=== PATIENT | female | born 1930 | race Asian ===

== ENCOUNTER → 2017-03-03 | Outpatient (CLI) | payer OTHER ==
[~2017-03-03] MED LIST: ATOR40TA28 PO; BRIN10DR OP; GLIP5 PO; LEVO500 PO; METF500T4 PO; VALS160T2 PO
== END | disposition home or self-care (01) ==
LOC: RADPV 10:01
PROVIDERS: ATTEND Internal Medicine
DX: J44.9 Chronic obstructive pulmonary disease, unspecified (principal); I51.7 Cardiomegaly; I70.0 Atherosclerosis of aorta; J98.11 Atelectasis; M41.84 Other forms of scoliosis, thoracic region
CPT/HCPCS: 71020

== ENCOUNTER 2017-05-05 19:05 | Emergency (ER) | payer OTHER ==
[~2017-05-05] VITALS: Ht 144.8 cm; Wt 59.1 kg
[~2017-05-05 19:05] MED LIST changes: +ALEN10TA PO; +AMLO-511 PO; +BIMA5DRO OP; +CALC500T62 PO; +FENO135C PO; +LORA10CA; +PIOG15TA13 PO; +SITA25 PO; +TRAM-459 PO
[2017-05-05 19:27] LABS: GLUCOSE,POINT OF CARE 145 MG/DL (70-110)
[2017-05-05 20:28] LABS: BASOPHILS % (AUTO) 0.3 % (0.0-2.0); EOSINOPHILS % (AUTO) 6.9 % (1.0-6.0); HEMOGLOBIN 12.1 g/dL (12.0-16.0); LYMPHOCYTES # (AUTO) 2.9 K/uL (1.0-4.8); LYMPHOCYTES % (AUTO) 35.7 % (22.0-44.0); MEAN CORPUSCULAR HEMOGLOBIN 30.8 pg (26.0-34.0); MEAN CORPUSCULAR HGB CONC 34.5 G/dL (31.0-37.0); MEAN CORPUSCULAR VOLUME 89 fL (80-100); MONOCYTES # (AUTO) 0.5 K/uL (0.1-1.0); MONOCYTES % (AUTO) 5.8 % (2.0-9.0); NEUTROPHILS # (AUTO) 4.1 K/uL (1.8-7.7); NEUTROPHILS % (AUTO) 51.3 % (40.0-70.0); PLATELET COUNT (AUTO) 304 K/uL (150-450); RED BLOOD CELL COUNT(AUTO) 3.92 MIL/uL (4.00-5.20); RED CELL DISTRIBUTION WIDTH 13.7 % (11.5-14.5); WHITE BLOOD COUNT (AUTO) 8.1 K/uL (4.5-11.0)
[2017-05-05 20:38] LABS: CALCIUM, TOTAL 9.6 mg/dL (8.8-10.5); CREATININE 1.53 mg/dL (0.60-1.30); POTASSIUM 5.9 mmol/L (3.5-5.1)
[2017-05-05 21:36] VITALS: BP 138/76
== END 2017-05-05 21:45 | disposition home or self-care (01) ==
LOC: EMS 19:11
DX: N39.0 Urinary tract infection, site not specified (principal); E87.5 Hyperkalemia; E11.9 Type 2 diabetes mellitus without complications; E78.00 Pure hypercholesterolemia, unspecified; I10 Essential (primary) hypertension
CPT/HCPCS: 51701; 82962; 99284